=== PATIENT | female | born 1950 | race Caucasian/White ===

== ENCOUNTER 2019-02-09 07:17 | Day surgery (SDC) | payer OTHER, BC ==
[2019-02-05 14:00] VITALS: BMI 22.1
[2019-02-09] MEDS ORDERED: PROPOFOL 20 ML ONE ×2 (08:03)
[2019-02-09] MEDS ORDERED: LIDOCAINE HCL/PF 2% SDV 5ML VIAL ONE (08:03)
[2019-02-09 08:58] VITALS: TEMP 98.1
[2019-02-09 09:27] VITALS: BP 116/86; PULSE 83
--- NOTE | 2019-02-12 16:24 | PATH ---
Surgical Pathology Report Patient Name: FARZAD QUEEN [facility]. Rec. #: [id number] /Age/Gender: 1950 (Age: 68) / F Account: [id number] Location: [facility] Taken: 02/09/2019 Received: 02/09/2019 Reported: 02/12/2019 Physicians: Oumar Rios M.D. Specimen(s) Received POLYP RECTOSIGMOID COLON Clinical History Colon, polyp, diverticulosis Final Diagnosis RECTOSIGMOID COLON, POLYP, BIOPSY: HYPERPLASTIC POLYP. Electronically Signed Angeline San M.D. Gross Description Received in formalin, labeled "polyp, rectosigmoid" is an irregular portion of soft tissue measuring 0.2 cm. in greatest dimension. The specimen is submitted in toto in one cassette. AE/02/10/2019 ebram/02/10/2019
== END 2019-02-09 09:34 | disposition home or self-care (01) ==
LOC: FASU-ENDO 07:17
PROVIDERS: ATTEND Internal Medicine Gastroenterology
PROC: 0DBN8ZX Excision of Sigmoid Colon, Via Natural or Artificial Opening Endoscopic, Diagnostic (ICD-10-PCS; principal; 2019-02-09 08:35)
DX: Z12.11 Encounter for screening for malignant neoplasm of colon (principal); K63.5 Polyp of colon; K57.30 Diverticulosis of large intestine without perforation or abscess without bleeding